=== PATIENT | female | born 1970 | race Caucasian/White ===

== ENCOUNTER 2017-06-30 09:08 | Day surgery (SDC) | payer OTHER ==
[~2017-06-30 09:08] MED LIST: CEFAZOLIN 2 GM/50 ML (PMX) 50 ML IVPB; SOD CHLORIDE 0.9% 1,000 ML IV
[2017-06-30 10:14] LABS: ADD MAN DIFF? NO
[2017-06-30 10:17] LABS: ABNORMAL IP MESSAGE 1; BASOPHILS % 0.5 % (0.0-2.0); EOSINOPHILS # 0.1 10^3/ul (0.0-0.5); EOSINOPHILS % 1.1 % (0.0-7.0); HEMATOCRIT 29.6 % (37.0-47.0); HEMOGLOBIN 8.5 g/dl (12.0-16.0); LYMPHOCYTES # 1.6 10^3/ul (0.8-2.9); LYMPHOCYTES % 28.9 % (15.0-51.0); MEAN CORPUSCULAR HEMOGLOBIN 21.2 pg (29.0-33.0); MEAN CORPUSCULAR HGB CONC 28.7 g/dl (32.0-37.0); MEAN CORPUSCULAR VOLUME 73.8 fl (82.0-101.0); MEAN PLATELET VOLUME 9.7 fl (7.4-10.4); MONOCYTE # 0.4 10^3/ul (0.3-0.9); MONOCYTES % 6.7 % (0.0-11.0); NEUTROPHIL # 3.6 10^3/ul (1.6-7.5); NEUTROPHILS % 62.6 % (39.0-77.0); PLATELET COUNT 492 10^3/UL (140-415); RED BLOOD COUNT 4.01 10^6/ul (4.20-5.40); RED CELL DISTRIBUTION WIDTH 17.5 % (11.5-14.5)
[2017-06-30 10:17] LABS: WHITE BLOOD COUNT 5.7 10^3/ul (4.8-10.8)
[2017-06-30 10:29] LABS: HOLD TRANSMISSIONS 1
[2017-06-30 10:36] LABS: INR 0.88; PARTIAL THROMBOPLASTIN TIME 26.9 Sec (25.0-35.0); PT RATIO 0.9
[2017-06-30 10:40] LABS: ALANINE AMINOTRANSFERASE 30 IU/L (13-69); ALBUMIN 4.6 g/dl (3.3-4.9); ALBUMIN/GLOBULIN RATIO 1.39; ALKALINE PHOSPHATASE 64 IU/L (42-121); ANION GAP 15 (8-16); ASPARTATE AMINO TRANSFERASE 18 IU/L (15-46); CARBON DIOXIDE 26 mmol/L (21-31); CHLORIDE 105 mmol/L (97-110); GLUCOSE 101 mg/dl (70-220); TOTAL PROTEIN 7.9 g/dl (6.1-8.1)
[2017-06-30 10:43] LABS: BLOOD UREA NITROGEN 13 mg/dl (7-20); CALCIUM 9.5 mg/dl (8.4-10.2); CREATININE 0.54 mg/dl (0.44-1.00); POTASSIUM 4.2 mmol/L (3.5-5.1); SODIUM 142 mmol/L (135-144)
[2017-06-30] MEDS ORDERED: PROPOFOL 20 ML (11:49)
[2017-06-30] MEDS ORDERED: SUCCINYLCHOLINE CHLORIDE 100 MG/5 ML SYG IV (11:49)
[2017-06-30] MEDS ORDERED: FENTAnyl 50 MCG/ML VIAL (11:49)
[2017-06-30] MEDS ORDERED: MIDAZOLAM 1 MG/ML 2 ML INJ (11:49)
[2017-06-30] MEDS ORDERED: LIDOCAINE 1% (MDV) 20 ML INJ (11:50)
[2017-06-30] MEDS ORDERED: DEXAMETHASONE 4 MG/ML 1 ML INJ (12:13)
[2017-06-30] MEDS ORDERED: ONDANSETRON 4 MG INJ (12:13)
[2017-06-30] MEDS ORDERED: CEFAZOLIN 1 GM INJ (12:13)
[2017-06-30] MEDS: BUPIVACAINE 0.5%/EPI (SDV) 30 ML INJ (12:57)
[2017-06-30] MEDS: HYDROmorphONE (0.2 MG/ML) 10ML SYG IV ×2 (12:57→13:06)
[2017-06-30] MEDS: HYDROCODONE/APAP (5/325) TAB PO (14:02)
== END 2017-06-30 16:14 | disposition home or self-care (01) ==
LOC: SDS 09:08
DX: K62.1 Rectal polyp (principal); K64.4 Residual hemorrhoidal skin tags
CPT/HCPCS: 46230; 80053; 85025; 85610; 85730; 88304; 88305